=== PATIENT | female | born 1960 | race African-American/Black ===

== ENCOUNTER 2018-09-24 11:52 | Emergency (ER) | payer SELFPAY ==
[~2018-09-24] VITALS: Ht 160 cm; Wt 76.7 kg
--- OUTSIDE RECORDS SUMMARY | 2018-09-24 11:59 | XMS REPORT ---
Author Author DEVAUGHN HDEZ [facility] MAIN Address [address] [place] [address] Care Team Providers Care Police And Fire Dispatcher Name Role Phone HDEZ, DEVAUGHN Unavailable PROBLEMS Type Condition ICD9-CM Code FSG99-MB Code Onset Dates Condition Status SNOMED Code Problem Sinusitis acute 461.9 May, 0 09603437 Problem Unspecified arthropathy, lower leg [id number] 0 780465051 Problem Unspecified asthma(493.90) J45.909 0 33822800 Problem Sinusitis acute J01.90 May, 0 66079462 Problem Cigarette nicotine dependence, uncomplicated F17.210 Nov, 0 037403474 Problem Cigarette nicotine dependence, uncomplicated 305.1 Nov, 0 263117554 Problem Back pain M54.9 Oct, 0 178615338 Problem Well woman exam with routine gynecological exam Z01.419 Nov, 0 [id number] Problem Tobacco use Z72.0 Nov, 0 226686342 Problem Esophageal reflux 530.81 0 629824061 Problem Acute bronchitis J20.9 May, 0 45506958 Problem Acute bronchitis 466.0 May, 0 26762116 Problem Esophageal reflux K21.9 0 963156799 Problem Well woman exam with routine gynecological exam V72.31 Nov, 0 [id number] Problem Tobacco use 305.1 Nov, 0 254377490 Problem Back pain 724.5 Oct, 0 136121374 Problem Unspecified arthropathy, lower leg 716.96 0 [id number] ALLERGIES Substance Reaction Event Type Date Status PredniSONE delirium Drug Allergy May, Active sulfa drugs Unknown Non Drug Allergy May, Active ENCOUNTERS Encounter Location Date Diagnosis [facility] MA[facility] [address] [place] [address] May, [facility] [address] [facility] [id number] [address] Mar, [facility] [address] [facility] [id number] [address] Mar, [facility] [address] [facility] [id number] [address] Feb, [facility] [address] [facility] [id number] [address] Feb, [facility] [address] [facility] [id number] [address] Dec, [facility] [address] [facility] [id number] [address] Dec, [facility] [address] [facility] [id number] [place] [address] Nov, IMMUNIZATIONS No Known Immunizations SOCIAL HISTORY Never Assessed REASON FOR VISIT medical history update PLAN OF CARE VITAL SIGNS MEDICATIONS Medication Instructions Dosage Frequency Start Date End Date Duration Status Tizanidine HCl 4 MG Orally every 8 hours 1 tablet as needed 8h Active Loratadine 10 MG Orally Once a day 1 tablet 24h 30 day(s) Active Ranitidine HCl 75 MG Orally Twice a day 1 tablet 12h Active Albuterol Sulfate HFA 108 (90 Base) MCG/ACT Inhalation every 6 hrs 2 puffs as needed 6h Active Tramadol HCl 50 MG Orally every 8 hours as needed for pain 1 tab Active Citalopram Hydrobromide 20 MG Orally Once a day 1 tablet 24h 30 day(s) Active Flonase 50 MCG/ACT Nasally Once a day 2 spray in each nostril 24h 30 day(s) Active RESULTS No Results PROCEDURES No Known procedures INSTRUCTIONS MEDICATIONS ADMINISTERED No Known Medications MEDICAL (GENERAL) HISTORY Type Description Date Medical History asthma Medical History esophageal reflux Medical History unspecified arthropathy, lower leg Medical History back pain Medical History sinusitis acute Medical History acute bronchitis Medical History tobacco use Medical History cigarette dependence
--- OUTSIDE RECORDS SUMMARY | 2018-09-24 11:59 | XMS REPORT | Continuity of Care Document ---
Author Organization Unknown Address Unknown Allergies There is no data. Medications There is no data. Problems There is no data. Procedures There is no data. Results There is no data. Encounters ACCT No. Visit Date/Time Discharge Status Pt. Type Provider Facility Loc./Unit Complaint [id number] 06/15/2018 11:00:00 06/15/2018 23:59:59 [facility]
[2018-09-24 12:22] LABS: BILIRUBIN,URINE NEGATIVE (NEGATIVE); CLARITY,URINE CLEAR; COLOR,URINE YELLOW; GLUCOSE, URINE (UA) NEGATIVE (NEGATIVE); KETONES,URINE NEGATIVE (NEGATIVE); NITRITE,URINE NEGATIVE (NEGATIVE); PH,URINE 6 (5-9); PROTEIN,URINE NEGATIVE (NEGATIVE)
[2018-09-24 12:23] LABS: BACTERIA,URINE NEGATIVE /HPF; LEUKOCYTE ESTERASE ,URINE NEGATIVE (NEGATIVE); UROBILINOGEN,URINE NORMAL (NORMAL)
[2018-09-24] MEDS ORDERED: DICL50TA6 PO (12:34)
--- NOTE | 2018-09-24 12:34 | ED GU-Female ---
General Chief Complaint: - Urinary Stated Complaint: BACK PAIN Nursing Triage Note: c/o bilateral flank pain x 1 week with urinary urgency and frequency Nursing Sepsis Screen: No Definite Risk Source: patient Exam Limitations: no limitations History of Present Illness Date Seen by Provider: Sep 24, 2018 Time Seen by Provider: 12:30 Initial Comments Patient complains of lower back pain for the past week. She reports increased urinary frequency. She is concerned she may have urinary tract infection. There is no trauma or heavy lifting. Pain is worse with movement. Allergies and Home Medications Home Medications Diclofenac Sodium 50 Mg Tablet.dr, 50 MG PO BID Prescribed by: DANE QUINN on 09/24/18 1234 Patient Home Medication List Home Medication List Reviewed: Yes Review of Systems Review of Systems Constitutional: no symptoms reported Respiratory: no symptoms reported Cardiovascular: no symptoms reported Musculoskeletal: back pain Skin: no symptoms reported; No rash Psychiatric/Neurological: No Symptoms Reported All Other Systemes Reviewed Negative Unless Noted: Yes Past Elkponu-Fzwcrp-Hepefk Hx Patient Social History Alcohol Use: Denies Use Recreational Drug Use: No Smoking Status: Current Everyday Smoker Type Used: Cigarettes 2nd Hand Smoke Exposure: No Recent Foreign Travel: No Contact w/Someone Who Travel: No Recent Infectious Disease Expo: No Physical Abuse: No Sexual Abuse: No Mistreated: No Past Medical History Surgeries: Yes (breast biopsy) Gallbladder, Hysterectomy Respiratory: No Cardiac: No Neurological: No Genitourinary: No Gastrointestinal: Yes Gastroesophageal Reflux Musculoskeletal: Yes Arthritis Endocrine: No HEENT: No Cancer: No Psychosocial: Yes Anxiety Integumentary: No Blood Disorders: No Physical Exam Vital Signs Vital Signs - First Documented 09/24/18 09/24/18 12:03 12:37 Temp 98.2 Pulse 99 Resp 18 B/P (MAP) 128/68 (88) Pulse Ox 97 O2 Delivery Room Air Capillary Refill : Less Than 3 Seconds Height, Weight, BMI Height: 5'3.00" Weight: 169lbs. oz. 76.551027gs; BMI Method:Stated General Appearance: WD/WN, no apparent distress Neck: supple Cardiovascular: regular rate, rhythm, no edema Respiratory: lungs clear Gastrointestinal: soft Back: normal inspection, muscle spasm (tender over SI joints bilaterally) Extremities: normal inspection Neurologic/Psychiatric: alert, normal mood/affect Skin: normal color, warm/dry Progress/Results/Core Measures Suspected Sepsis Recent Fever Within 48 Hours: No Infection Criteria Present: None New/Unexplained Altered Menta: No Sepsis Screen: No Definite Risk SIRS Temperature:98.2 Pulse: 99 Respiratory Rate: 18 Blood Pressure 128 /68 Mean: 88 Results/Orders Lab Results Laboratory Tests Test 09/24/18 12:10 Range/Units Urine Color YELLOW Urine Clarity CLEAR Urine pH 6 5-9 Urine Specific [place] 1.010 L 1.016-1.022 Urine Protein NEGATIVE NEGATIVE Urine Glucose (UA) NEGATIVE NEGATIVE Urine Ketones NEGATIVE NEGATIVE Urine Nitrite NEGATIVE NEGATIVE Urine Bilirubin NEGATIVE NEGATIVE Urine Urobilinogen NORMAL NORMAL MG/DL Urine Leukocyte Esterase NEGATIVE NEGATIVE Urine RBC (Auto) NEGATIVE NEGATIVE Urine RBC NONE /HPF Urine WBC NONE /HPF Urine Squamous Epithelial Cells 10-25 H /HPF Urine Crystals NONE /LPF Urine Bacteria NEGATIVE /HPF Urine Casts NONE /LPF Urine Mucus NEGATIVE /LPF Urine Culture Indicated NO My Orders Orders - DANE QUINN MD Urinalysis (09/24/18 11:58) Vital Signs/I&O 09/24/18 09/24/18 12:03 12:37 Temp 98.2 98.2 Pulse 99 99 Resp 18 18 B/P (MAP) 128/68 (88) 128/68 (88) Pulse Ox 97 O2 Delivery Room Air Capillary Refill : Less Than 3 Seconds Blood Pressure Mean: 88 Departure Impression Primary Impression: Back pain Disposition: 01 HOME, SELF-CARE Condition: Stable Transfer Time Spoke to Accepting Phy: 12:32 Transfer Progress Notes Heating pad and gentle massage to the lower back. Departure-Patient Inst. Decision time for Depature: 12:32 Referrals: NO,LOCAL PHYSICIAN (PCP) Primary Care Physician Patient Instructions: Low Back Pain (DC) Add. Discharge Instructions: Heating pad and gentle massage to the lower back. All discharge instructions reviewed with patient and/or family. Voiced understanding. Scripts Diclofenac Sodium (Diclofenac Sodium) 50 Mg Tablet. 50 MG PO BID, #10 TAB Prov: DANE QUINN MD 09/24/18 DANE QUINN MD Sep 24, 2018 12:34
[2018-09-24 12:37] VITALS: BP 128/68
== END 2018-09-24 12:39 | disposition home or self-care (01) ==
LOC: ER FS 11:55
DX: M54.5 Low back pain (principal); K21.9 Gastro-esophageal reflux disease without esophagitis; F41.9 Anxiety disorder, unspecified; F17.210 Nicotine dependence, cigarettes, uncomplicated; Z90.710 Acquired absence of both cervix and uterus
CPT/HCPCS: 81000; 99282

== ENCOUNTER 2019-04-05 20:50 | Emergency (ER) | payer OTHER ==
[~2019-04-05] VITALS: Ht 157.5 cm; Wt 72.3 kg
[~2019-04-05 20:50] MED LIST: DICL50TA6 PO
[2019-04-05] MEDS ORDERED: ASPIRIN 81 MG CHEW (CHILDREN'S ASA) PO ONE (21:15)
[2019-04-05 21:19] LABS: HEMATOCRIT 41 % (35-52); HEMOGLOBIN 13.3 G/DL (11.5-16.0); MEAN CORPUSCULAR HEMOGLOBIN 27 PG (25-34); WHITE BLOOD COUNT 7.6 10^3/uL (4.3-11.0)
[2019-04-05 21:20] LABS: BASOPHILS # (AUTO) 0.1 10^3/uL (0.0-0.1); BASOPHILS % (AUTO) 1 % (0-10); EOSINOPHILS # (AUTO) 0.2 10^3/uL (0.0-0.3); EOSINOPHILS % (AUTO) 3 % (0-10); LYMPHOCYTES % (AUTO) 40 % (12-44); MEAN CORPUSCULAR HGB CONC 33 G/DL (32-36); MEAN CORPUSCULAR VOLUME 83 FL (80-99); MEAN PLATELET VOLUME 10.1 FL (7.4-10.4); MONOCYTES # (AUTO) 0.8 X 10^3 (0.0-1.0); MONOCYTES % (AUTO) 10 % (0-12); NEUTROPHILS # (AUTO) 3.5 X 10^3 (1.8-7.8); NEUTROPHILS % (AUTO) 46 % (42-75); PLATELET COUNT 271 10^3/uL (130-400); RED CELL DISTRIBUTION WIDTH 14.1 % (10.0-14.5)
--- NOTE | 2019-04-05 21:31 | ED Chest Pain ---
General Chief Complaint: Chest Pain Stated Complaint: CHEST PAIN Nursing Triage Note: pt states chest pain starting yesterday on and off, today retrosternal chest pain all day, pressure, pt states she does have acid reflux Nursing Sepsis Screen: No Definite Risk Source: patient History of Present Illness Date Seen by Provider: Apr 05, 2019 Time Seen by Provider: 21:01 Initial Comments 58-year-old female presenting with complaints of pressure and burning in her epigastric and chest area. This is been going on throughout the day. She states that when she tries to eat it does get worse. She also has increased symptoms when she exerts herself. She has been having symptoms off and on for a while but it has been worse since yesterday. She also has been having some intermittent pains in her left breast. She does have an appointment to see Dr. Jones in the middle of April. She states that there is a history of diabetes high blood pressure and heart disease in her family but that she personally on a has a history of asthma and smoking. She has had her gallbladder and that hasn't seemed to take care of her reflux so she doesn't take medicine for that anymore. Some of her symptoms are similar to reflux she is to have but she states they also seem different. Allergies and Home Medications Allergies Coded Allergies: Sulfa (Sulfonamide Antibiotics) (Verified Allergy, Unknown, 04/05/19) prednisone (Verified Allergy, Unknown, 04/05/19) Home Medications Diclofenac Sodium 50 Mg Tablet.dr, 50 MG PO BID Prescribed by: DANE QUINN on 09/24/18 1234 Ranitidine HCl 150 Mg Tablet, 150 MG PO BID Prescribed by: MELITON LUEVANO on 04/05/19 2316 Patient Home Medication List Home Medication List Reviewed: Yes Review of Systems Review of Systems Constitutional: No chills, No dizziness, No fever, No malaise EENTM: No Symptoms Reported Respiratory: Cough (chronic, intermittent but states she is a smoker); Denies Shortness of Air, Denies Stridor Cardiovascular: Chest Pain (burning pain in middle of chest, pressure in epigastric area going up to middle of chest and left breast at times); Denies Edema, Denies Irregular Heart Rate, Denies Lightheadedness, Denies Palpitations, Denies Syncope Gastrointestinal: Abdominal Pain (epigastric pressure and fullness, worse with eating); Denies Constipated, Denies Diarrhea, Denies Difficulty Swallowing, Denies Nausea, Denies Rectal Bleeding, Denies Vomiting Genitourinary: Denies Burning, Denies Frequency, Denies Pain Musculoskeletal: back pain (chronic) Skin: No rash Psychiatric/Neurological: Denies Headache, Denies Numbness, Denies Paresthesia Endocrine: No Symptoms Reported Hematologic/Lymphatic: No Symptoms Reported Past Yqnyumy-Mexxez-Vamjbj Hx Past Med/Social Hx: Reviewed Nursing Past Med/Soc Hx Patient Social History Alcohol Use: Denies Use Recreational Drug Use: No Type Used: Cigarettes 2nd Hand Smoke Exposure: No Recent Foreign Travel: No Contact w/Someone Who Travel: No Recent Infectious Disease Expo: No Recent Hopitalizations: No Physical Abuse: No Sexual Abuse: No Mistreated: No Fear: No Seasonal Allergies Seasonal Allergies: No Past Medical History Surgeries: Yes (breast biopsy) Gallbladder, Hysterectomy Respiratory: No Cardiac: No Neurological: No Genitourinary: No Gastrointestinal: Yes Gastroesophageal Reflux Musculoskeletal: Yes Arthritis Endocrine: No HEENT: No Cancer: No Psychosocial: Yes Anxiety Integumentary: No Blood Disorders: No Physical Exam Vital Signs Vital Signs - First Documented 04/05/19 21:05 Temp 36.1 Pulse 92 Resp 22 B/P (MAP) 126/75 (92) Pulse Ox 97 O2 Delivery Room Air Capillary Refill : Less Than 3 Seconds Height, Weight, BMI Height: 5'3.00" Weight: 169lbs. oz. 76.348462ou; 29.00 BMI Method:Stated General Appearance: No Apparent Distress, WD/WN HEENT: PERRL/EOMI, Normal ENT Inspection, Pharynx Normal Neck: Full Range of Motion, Normal Inspection, Non Tender, Supple; No Carotid Bruit Respiratory: Chest Non Tender, Lungs Clear, Normal Breath Sounds, No Accessory Muscle Use, No Respiratory Distress Cardiovascular: Regular Rate, Rhythm, No JVD, Normal Peripheral Pulses Gastrointestinal: Normal Bowel Sounds, No Pulsatile Mass, Soft; No Distended, No Guarding; Tenderness (mild epigastric tenderness with palpation) Rectal: Deferred Extremity: Normal Capillary Refill, Normal Inspection, No Calf Tenderness, No Pedal Edema Neurologic/Psychiatric: Alert, Oriented x3, Normal Mood/Affect Skin: Normal Color, Warm/Dry Progress/Results/Core Measures Results/Orders Lab Results Laboratory Tests Test 04/05/19 21:05 Range/Units White Blood Count 7.6 4.3-11.0 10^3/uL Red Blood Count 4.90 4.35-5.85 10^6/uL Hemoglobin 13.3 11.5-16.0 G/DL Hematocrit 41 35-52 % Mean Corpuscular Volume 83 80-99 FL Mean Corpuscular Hemoglobin 27 25-34 PG Mean Corpuscular Hemoglobin Concent 33 32-36 G/DL Red Cell Distribution Width 14.1 10.0-14.5 % Platelet Count 271 130-400 10^3/uL Mean Platelet Volume 10.1 7.4-10.4 FL Neutrophils (%) (Auto) 46 42-75 % Lymphocytes (%) (Auto) 40 12-44 % Monocytes (%) (Auto) 10 0-12 % Eosinophils (%) (Auto) 3 0-10 % Basophils (%) (Auto) 1 0-10 % Neutrophils # (Auto) 3.5 1.8-7.8 X 10^3 Lymphocytes # (Auto) 3.0 1.0-4.0 X 10^3 Monocytes # (Auto) 0.8 0.0-1.0 X 10^3 Eosinophils # (Auto) 0.2 0.0-0.3 10^3/uL Basophils # (Auto) 0.1 0.0-0.1 10^3/uL Prothrombin Time 13.2 12.2-14.7 SEC INR Comment 1.0 0.8-1.4 Activated Partial Thromboplast Time 36 H 24-35 SEC Sodium Level 137 135-145 MMOL/L Potassium Level 4.2 3.6-5.0 MMOL/L Chloride Level 100 98-107 MMOL/L Carbon Dioxide Level 22 21-32 MMOL/L Anion Gap 15 H 5-14 MMOL/L Blood Urea Nitrogen 15 7-18 MG/DL Creatinine 0.67 0.60-1.30 MG/DL Estimat Glomerular Filtration Rate > 60 BUN/Creatinine Ratio 22 Glucose Level 151 H 70-105 MG/DL Calcium Level 9.0 8.5-10.1 MG/DL Corrected Calcium 9.3 8.5-10.1 MG/DL Magnesium Level 1.9 1.6-2.4 MG/DL Total Bilirubin 0.2 0.1-1.0 MG/DL Aspartate Amino Transf (AST/SGOT) 16 5-34 U/L Alanine Aminotransferase (ALT/SGPT) 15 0-55 U/L Alkaline Phosphatase 111 40-136 U/L Troponin I < 0.30 <0.30 NG/ML Pro-B-Type Natriuretic Peptide 5.7 <75.0 PG/ML Total Protein 6.9 6.4-8.2 GM/DL Albumin 3.6 3.2-4.5 GM/DL Lipase 66 8-78 U/L My Orders Orders - MELITON LUEVANO MD Cbc With Automated Diff (04/05/19 21:05) Magnesium (04/05/19 21:05) Chest 1 View Ap/Pa Only (04/05/19 21:05) Ekg Tracing (04/05/19 21:05) Comprehensive Metabolic Panel (04/05/19 21:05) Protime With Inr (04/05/19 21:05) Partial Thromboplastin Time (04/05/19 21:05) O2 (04/05/19 21:05) Monitor-Rhythm Ecg Trace Only (04/05/19 21:05) Aspirin Chewable Tablet (Baby Aspirin Ch (04/05/19 21:15) Ed Iv/Invasive Line Start (04/05/19 21:05) Troponin I Fs (04/05/19 21:05) Probnp Fs (04/05/19 21:05) Lipase (04/05/19 21:34) Pantoprazole Injection (Protonix Injecti (04/05/19 21:39) Medications Given in ED Current Medications Medications Dose Ordered Sig/Jignesh Route Start Time Stop Time Status Last Admin Dose Admin Aspirin 324 mg ONCE ONCE PO 04/05/19 21:15 04/05/19 21:16 DC 04/05/19 21:21 324 MG Vital Signs/I&O 04/05/19 04/05/19 21:05 23:21 Temp 36.1 Pulse 92 78 Resp 22 17 B/P (MAP) 126/75 (92) 108/38 Pulse Ox 97 97 O2 Delivery Room Air Room Air Blood Pressure Mean: 92 Progress Progress Note #1: Time: 21:01 Progress Note Obtain basic labs and electrocardiogram with cxr. With her family history of cardiac disease and having vague pressure in her chest as well as pain going into her back Will evaluate from a cardiac standpoint and see if she has any elevation of her enzymes since she has had symptoms throughout the day. Give aspirin to cover from cardiac standpoint and protonix since she also has burning pain radiating into her chest. Progress Note #2: Progress Note Labs are all normal from a cardiac standpoint, especially considering she has had pain for more then 6 hours. She has no indication of acute AK. her CXR was clear as well. She had improvement of her symptoms with treatment here in the ED. Counseled on follow-up and return precautions. Advised to avoid fatty greasy foods close to bedtime. Try taking antacid medications. 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 MS interval 147 ms. QT interval 348 ms and QTc interval 429 ms. There is artifact on the tracing. There is no prior tracing available for comparison. There is no acute ST elevation. Diagnostic Imaging Diagonstic Imaging: Xray Plain Films/CT/US/NM/MRI: chest Comments NAME: SHILA RIVERA [facility] REC#: [id number] PT STATUS: REG ER : 1960 PHYSICIAN: MELITON LUEVANO MD ADMIT DATE: 04/05/19/ER FS Signed Date of Exam:04/05/19 CHEST 1 VIEW AP/PA ONLY CHEST 1 VIEW AP/PA ONLY Indication: Chest pain. Comparison: None available. Findings: No focal airspace disease in the visualized lungs. Please note that the posterior lower lobes are poorly evaluated by portable radiography. No pleural effusion or pneumothorax. Normal cardiomediastinal silhouette. Impression: 1. No acute cardiopulmonary process by portable radiography. Dictated by: Dictated on workstation # [id number] Dict: 04/05/192134 Trans: 04/05/192135 [facility] [id number] Interpreted by: EMMA CRUZ MD Electronically signed by: EMMA CRUZ MD 04/05/192135 Departure Impression Primary Impression: Epigastric abdominal pain Additional Impressions: GERD with esophagitis Chest pain due to GERD Disposition: 01 HOME, SELF-CARE Condition: Stable Departure-Patient Inst. Decision time for Depature: 23:14 Referrals: NO,LOCAL PHYSICIAN (PCP) Primary Care Physician KAYLYNN JONES MD Patient Instructions: Acid Reflux (Gastroesophageal Reflux Disease), Adult (DC), Chest Pain That Is Not Caused by the Heart (DC), Ulcer and Gastritis Diet Add. Discharge Instructions: Your tests tonight had looked ok from a heart stand point. You should keep your appointment with Dr. Jones in April and he may want you to have risk stratification testing with Cardiology or have a scope to look at the lining of your stomach and esophagus. Take the medicine for your stomach and to help treat for heart burn. Avoid fatty or greasy foods within a few hours of going to bed If you have worsening symptoms or new problems get rechecked or see Dr. Jones sooner. All discharge instructions reviewed with patient and/or family. Voiced understanding. Scripts Ranitidine HCl (Acid Dairy Equipment Mechanic (RANITIDINE)) 150 Mg Tablet 150 MG PO BID for reflux for 30 Days, #60 TAB 0 Refills Prov: MELITON LUEVANO MD 04/05/19 Work/School Note: Work Release Form Date Seen in the Emergency Department: Apr 05, 2019 Return to Work: Apr 07, 2019 Restrictions: No Restrictions MELITON LUEVANO MD Apr 05, 2019 21:31
[2019-04-05 21:32] LABS: PROTHROMBIN TIME PATIENT 13.2 SEC (12.2-14.7)
--- NOTE | 2019-04-05 21:37 | Diagnostic Imaging Report ---
CHEST 1 VIEW AP/PA ONLY Indication: Chest pain. Comparison: None available. Findings: No focal airspace disease in the visualized lungs. Please note that the posterior lower lobes are poorly evaluated by portable radiography. No pleural effusion or pneumothorax. Normal cardiomediastinal silhouette. Impression: 1. No acute cardiopulmonary process by portable radiography. Dictated by: Dictated on workstation # [id number]
[2019-04-05] MEDS ORDERED: PANTOPRAZOLE 40 MG (PROTONIX) VIAL IV STA (21:39)
[2019-04-05 21:59] LABS: ALANINE AMINOTRANSFERASE 15 U/L (0-55); ALBUMIN 3.6 GM/DL (3.2-4.5); ALKALINE PHOSPHATASE 111 U/L (40-136); BILIRUBIN,TOTAL 0.2 MG/DL (0.1-1.0); BUN/CREATININE RATIO 22; CARBON DIOXIDE 22 MMOL/L (21-32); CHLORIDE 100 MMOL/L (98-107); CREATININE SERUM 0.67 MG/DL (0.60-1.30); GFR ESTIMATED > 60; GLUCOSE 151 MG/DL (70-105); MAGNESIUM 1.9 MG/DL (1.6-2.4); POTASSIUM 4.2 MMOL/L (3.6-5.0); SODIUM 137 MMOL/L (135-145); TOTAL PROTEIN 6.9 GM/DL (6.4-8.2)
[2019-04-05] MEDS ORDERED: RANI150T90 PO (23:16)
[2019-04-05 23:21] VITALS: BP 108/38
== END 2019-04-05 23:21 | disposition home or self-care (01) ==
LOC: EDUNIT# 20:50 → ER FS 20:51
DX: R10.13 Epigastric pain (principal); K21.9 Gastro-esophageal reflux disease without esophagitis; F41.9 Anxiety disorder, unspecified; J45.909 Unspecified asthma, uncomplicated; F17.210 Nicotine dependence, cigarettes, uncomplicated; Z88.2 Allergy status to sulfonamides; Z88.8 Allergy status to other drugs, medicaments and biological substances; Z90.710 Acquired absence of both cervix and uterus
CPT/HCPCS: 36415; 71045; 80053; 83690; 83735; 83880; 84484; 85025; 85610; 85730; 93005

== ENCOUNTER 2019-10-26 13:37 | Emergency (ER) | payer SELFPAY ==
[~2019-10-26] VITALS: Ht 157 cm; Wt 84.0 kg
[~2019-10-26 13:37] MED LIST changes: +RANI150T90 PO
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
--- OUTSIDE RECORDS SUMMARY | 2019-10-26 14:49 | XMS REPORT ---
Author Author Keyla Espinoza Organization [facility] Address [address] [place] [address] Care Team Providers Care Ux Designer Name Role Phone DEVAUGHN Espinoza Unavailable PROBLEMS Type Condition ICD9-CM Code [id number] Code Onset Dates Condition S tatus SNOMED Code Problem Unspecified arthropathy, lower leg [id number] Active 059813061 Problem Cigarette nicotine dependence, uncomplicated F1 7.210 Nov, Active 413749301 Problem Back pain M54.9 Oct, Active 8504832 05 Problem Well woman exam with routine gynecological exam Z01.419 Nov, Active 182622184064513 Problem Tobacco use Z72.0 Nov, Active 21085 3000 Problem Primary osteoarthritis of left knee M17.12 Active 791067818851290 Problem Esophageal reflux K21.9 Active 24 1030677 Problem Asthma, intermittent with acute exacerbation J45.2 1 Active 184092257 Problem Unspecified asthma(493.90) J45.909 Act jes 45040221 Problem GERD without esophagitis K21.9 Activ e 515918835 Problem Spondylolysis, lumbar region M43.06 A ctive 187631948 Problem Generalized anxiety disorder F41.1 A ctive 21753176 Problem Panic disorder [episodic paroxysmal anxiety] F41.0 Active 676500427 ALLERGIES No Information ENCOUNTERS Encounter Location Date Diagnosis [address] [id number] [address] Aug, Primary osteoarthritis of le ft knee M17.[address] [id number], [place] [address] May, Bronchitis J40 ; Asthma, int ermittent with acute exacerbation J45.21 and Tobacco abuse Z72.[address] [id number], [place] [address] May, Primary osteoarthritis of le ft knee M17.12 [facility] [address] [id number] [place] [address] May, Acute nasopharyngitis J00 [facility] [address] [id number] [place] [address] Apr, Acute rhinosinusitis J01.90 ; Upper respiratory tract infection, unspecified type J06.9 ; Sore throat J02.9 ; Headache R51 and Chills R68.[address] [id number] [place] [address] Apr, [address] [id number], [place] [address] Feb, Primary osteoarthritis of le ft knee M17.[address] [id number], [place] [address] Nov, Primary osteoarthritis of le ft knee M17.[address] [id number] [place] [address] Oct, Primary osteoarthritis of le ft knee M17.12 ; GERD without esophagitis K21.9 ; Generalized anxiety disorder F41.1 ; Cigarette nicotine dependence, uncomplicated F17.210 ; Screening mammogram, encounter for Z12.31 and Lipid screening Z13.220 [place] [address] [facility] [id number] [address] [place] [address] Oct, [place] [address] [facility] [id number] [address] [place] [address] Sep, Primary osteoarthritis of le ft knee M17.[address] [id number], [place] [address] Aug, Primary osteoarthritis of le ft knee M17.[address] [id number] [place] [address] July, Primary osteoarthritis of le ft knee M17.12 [place] [address] [id number] [address] [place] [address] Jun, Generalized anxiety disorder F41.[address] [id number] [place] [address] Jun, Primary osteoarthritis of le ft knee M17.[address] [id number] [place] [address] Jun, [address] [id number], [place] [address] May, Primary osteoarthritis of le ft knee M17.12 ; Achilles tendinitis, left leg M76.62 ; Other specified bacterial agents as the cause of diseases classified elsewhere B96.89 ; Acute vaginitis N76.0 ; Spondylolysis, lumbar region M43.06 ; GERD without esophagitis K21.9 ; Panic disorder [episodic paroxysmal anxiety] F41.0 and Generalized anxiety disorder F41.[address] [id number] [place] [address] May, [facility] [address] [id number] [address] [place] [address] Mar, [facility] [address] [id number] [address] [place] [address] Mar, [facility] [address] [id number] [address] [place] [address] Feb, [facility] [address] [id number] [address] [place] [address] Feb, [facility] [address] [id number] [address] [place] [address] Dec, [facility] [address] [id number] [address] [place] [address] Dec, [facility] [address] [facility] [id number] [address] [place] [address] Nov, IMMUNIZATIONS No Known Immunizations SOCIAL HISTORY Never Assessed REASON FOR VISIT refills PLAN OF CARE VITAL SIGNS MEDICATIONS Medication Instructions Dosage Frequency Start Date End Date Duration S victor hugo Citalopram Hydrobromide 20 MG Orally Once a day 1 tablet 24h 30 days Active Ranitidine HCl 75 MG Orally Twice a day 1 tablet 12h 30 days Active RESULTS No Results PROCEDURES No Known [...]
--- OUTSIDE RECORDS SUMMARY | 2019-10-26 14:49 | XMS REPORT | Continuity of Care Document ---
Author Organization Unknown Address Unknown Phone Unavailable Allergies Active Description Code Type Severity Reaction Onset Reported/Identified Relationship to Patient Clinical Status Yes prednisone [id number] Drug Allerg y Unknown N/A 04/05/2019 Yes Sulfa (Sulfonamide Antibiotics) [id number] 0491 Drug Allergy Unknown N/A 020 Medications There is no data. Problems Date Dx Coded Attending Type Code Diagnosis Diagnosed By 09/24/2018 DANE QUINN MD Ot F17.210 NICOTINE DEPENDENCE, CIGARETTES, UNCOMPL 09/24/2018 DANE QUINN MD Ot F41. 9 ANXIETY DISORDER, UNSPECIFIED 09/24/2018 DANE QUINN MD Ot K21. 9 GASTRO-ESOPHAGEAL REFLUX DISEASE WITHOUT 09/24/2018 DANE QUINN MD Ot M54. 5 LOW BACK PAIN 09/24/2018 DANE QUINN MD Ot Z90.710 ACQUIRED ABSENCE OF BOTH CERVIX AND UTER 09/29/2018 DANE QUINN MD, Ot F17.210 NICOTINE DEPENDENCE, CIGARETTES, UNCOMPL 09/29/2018 DANE QUINN MD Ot F41. 9 ANXIETY DISORDER, UNSPECIFIED 09/29/2018 DANE QUINN MD Ot K21. 9 GASTRO-ESOPHAGEAL REFLUX DISEASE WITHOUT 09/29/2018 DANE QUINN MD Ot M54. 5 LOW BACK PAIN 09/29/2018 DANE QUINN MD Ot Z90.710 ACQUIRED ABSENCE OF BOTH CERVIX AND UTER 04/05/2019 MELITON LUEVANO MD Ot F17.2 10 NICOTINE DEPENDENCE, CIGARETTES, UNCOMPL 04/05/2019 MELITON LUEVANO MD, Ot F41.9 ANXIETY DISORDER, UNSPECIFIED 04/05/2019 MELITON LUEVANO MD Ot J45.9 09 UNSPECIFIED ASTHMA, UNCOMPLICATED 04/05/2019 MELITON LUEVANO MD, Ot K21.9 GASTRO-ESOPHAGEAL REFLUX DISEASE WITHOUT 04/05/2019 MELITON LUEVANO MD Ot R07.9 CHEST PAIN, UNSPECIFIED 04/05/2019 MELITON LUEVANO MD, Ot R10.1 3 EPIGASTRIC PAIN 04/05/2019 MELITON LUEVANO MD, Ot Z88.2 ALLERGY STATUS TO SULFONAMIDES STATUS 04/05/2019 MELITON LUEVANO MD, Ot Z88.8 ALLERGY STATUS TO OTH DRUG/MEDS/BIOL SUB 04/05/2019 MELITON LUEVANO MD, Ot Z90.7 10 ACQUIRED ABSENCE OF BOTH CERVIX AND UTER Procedures There is no data. Results Test Result Range Complete urinalysis with reflex to cultu re - 09/24/18 12:10 Urine color determination YELLOW NRG Urine clarity determination CLEAR NR G Urine pH measurement by test strip 6 5-9 Specific gravity of urine by test strip 1.010 1.016-1.022 Urine protein assay by test strip, semi-quantitative NEGATIVE NEGATIVE Urine glucose detection by automated test strip NE GATIVE NEGATIVE Erythrocytes detection in urine sediment by light micr oscopy NEGATIVE NEGATIVE Urine ketones detection by automated test strip NE GATIVE NEGATIVE Urine nitrite detection by test strip NEGATIVE NEGATIVE Urine total bilirubin detection by test strip NEGA TIVE NEGATIVE Urine urobilinogen measurement by automated test strip (mass/volume) NORMAL NORMAL Urine leukocyte esterase detection by dipstick NEG ATIVE NEGATIVE Automated urine sediment erythrocyte cou nt by microscopy (number/high power field) NONE NRG Automated urine sediment leukocyte count by microscopy (number/high power field) NONE NRG Bacteria detection in urine sediment by light microsco py NEGATIVE NRG Squamous epithelial cells detection in u rine sediment by light microscopy 10-25 NRG Crystals detection in urine sediment by light microsco py NONE NRG Casts detection in urine sediment by light microscopy NONE NRG Mucus detection in urine sediment by light microscopy NEGATIVE NRG Complete urinalysis with reflex to culture NO NRG Complete blood count (CBC) with automate d white blood cell (WBC) differential - 04/05/19 21:05 Blood leukocytes automated count (number/volume) 7.6 10*3/uL 4.3-11.0 Blood erythrocytes automated count (number/volume) 4.90 10*6/uL 4.35-5.85 Venous blood hemoglobin measurement (mass/volume) 13.3 g/dL 11.5-16.0 Blood hematocrit (volume fraction) 41 % 35-52 Automated erythrocyte mean corpuscular volume 83 [ foz_us] 80-99 Automated erythrocyte mean corpuscular h emoglobin (mass per erythrocyte) 27 pg 25-34 Automated erythrocyte mean corpuscular h emoglobin concentration measurement (mass/volume) 33 g/dL 32-36 Automated erythrocyte distribution width ratio 14. 1 % 10.0- 14.5 Automated blood platelet count (count/volume) 271 10*3/uL 130-400 Automated blood platelet mean volume measurement 10.1 [foz_us] 7.4-10.4 Automated blood neutrophils/100 leukocytes 46 % 42-75 Automated blood lymphocytes/100 leukocytes 40 % 12-44 Blood monocytes/100 leukocytes 10 % 0-12 Automated blood eosinophils/100 leukocytes 3 % 0-10 Automated blood basophils/100 leukocytes 1 % 0-10 Blood neutrophils automated count (number/volume) 3.5 10*3 1.8-7.8 Blood lymphocytes automated count (number/volume) 3.0 10*3 1.0-4.0 Blood monocytes automated count (number/volume) 0. 8 10*3 0.0-1.0 Automated eosinophil count 0.2 10*3/uL 0 .0-0.3 Automated blood basophil count (count/volume) 0.1 10*3/uL 0.0-0.1 PT panel in platelet poor plasma by coag ulation assay - 04/05/19 21:05 Prothrombin time (PT) in platelet poor plasma by coagu lation assay 13.2 s 12.2-14.7 INR in platelet poor plasma or blood by coagulation as say 1.0 0.8-1.4 Activated partial thromboplastin time (a PTT) in platelet poor plasma bycoagulation assay - 04/05/19 21:05 Activated partial thromboplastin time (a PTT) in platelet poor plasma bycoagulation assay 36 s 24-35 Lipase - 04/05/19 21:05 Lipase 66 U/L 8-78 TROPONIN I FS - 04/05/19 21:05 TROPONIN I FS < 0.30 <0.30 PROBNP FS - 04/05/19 21:05 PROBNP FS 5.7 pg/mL <75.0 Comprehensive metabolic panel - 04/05/19 21:05 Serum or plasma sodium measurement (moles/volume) 137 mmol/L 135-145 Serum or plasma potassium measurement (moles/volume) 4.2 mmol/L 3.6-5.0 Serum or plasma chloride measurement (moles/volume) 100 mmol/L 98-107 Carbon dioxide 22 mmol/L 21-32 Serum or plasma anion gap determination (moles/volume) 15 mmol/L 5-14 Serum or plasma urea nitrogen measurement (mass/volume ) 15 mg/dL 7-18 Serum or plasma creatinine measurement (mass/volume) 0.67 mg/dL 0.60-1.30 Serum or plasma urea nitrogen/creatinine mass ratio 22 NRG Serum or plasma creatinine measurement w ith calculation of estimated glomerular filtration rate > NRG Serum or plasma glucose measurement (mass/volume) 151 mg/dL 70-105 Serum or plasma calcium measurement (mass/volume) 9.0 mg/dL 8.5-10.1 Serum or plasma total bilirubin measurement (mass/volu me) 0.2 mg/dL 0.1-1.0 Serum or plasma alkaline phosphatase jenn surement (enzymatic activity/volume) 111 U/L 40-136 Serum or plasma aspartate aminotransfera se measurement (enzymatic activity/volume) 16 U/L 5-34 Serum or plasma alanine aminotransferase measurement (enzymatic activity/volume) 15 U/L 0-55 Serum or plasma protein measurement (mass/volume) 6.9 g/dL 6.4-8.2 Serum or plasma albumin measurement (mass/volume) 3.6 g/dL 3.2-4.5 CALCIUM CORRECTED 9.3 mg/dL 8.5-10.1 Magnesium - 04/05/19 21:05 Magnesium 1.9 mg/dL 1.6-2.4 Encounters ACCT No. Visit Date/Time Discharge Status Pt. Type Provider Facility Loc./Unit Complaint [id number] 05/25/2019 16:00:00 05/25/2019 23:59: 59 CLS Outpatient SELF, KAYLYNN Lynch [facility] [id number] 04/05/2019 20:51:00 020 23:21:00 DIS Emergency CHLOÉ MCKINNEY, MELITON [place] [facility] ER FS CHEST PAIN [id number] 09/24/2018 11:55:00 019 12:39:00 DIS Emergency KAI MCKINNEY, DANE [place] [facility] ER FS BACK PAIN
--- OUTSIDE RECORDS SUMMARY | 2019-10-26 14:49 | XMS REPORT ---
Author Author Keyla Espinoza Organization [facility] Address [address] [place] [address] Care Team Providers Care Case Finishing Machine Adjuster Name Role Phone DEVAUGHN Espinoza Unavailable PROBLEMS Type Condition ICD9-CM Code FRD42-EV Code Onset Dates Condition S tatus SNOMED Code Problem Unspecified arthropathy, lower leg AGE1946 Active 674427456 Problem Cigarette nicotine dependence, uncomplicated F1 7.210 Nov, Active 608365878 Problem Back pain M54.9 Oct, Active 3484237 05 Problem Well woman exam with routine gynecological exam Z01.419 Nov, Active 168924704700158 Problem Tobacco use Z72.0 Nov, Active 66089 3000 Problem Primary osteoarthritis of left knee M17.12 Active 051962741898010 Problem Esophageal reflux K21.9 Active 24 2146056 Problem Asthma, intermittent with acute exacerbation J45.2 1 Active 663521856 Problem Unspecified asthma(493.90) J45.909 Act jes 30900236 Problem GERD without esophagitis K21.9 Activ e 949055168 Problem Spondylolysis, lumbar region M43.06 A ctive 827654925 Problem Generalized anxiety disorder F41.1 A ctive 26433171 Problem Panic disorder [episodic paroxysmal anxiety] F41.0 Active 251425747 ALLERGIES No Information ENCOUNTERS Encounter Location Date Diagnosis [address] [id number] [address] May, Bronchitis J40 ; Asthma, int ermittent with acute exacerbation J45.21 and Tobacco abuse Z72.[address] [id number], [place] [address] 09 May, 2019 Primary osteoarthritis of le ft knee M17.12 [facility] [address] [id number] [address] May, Acute nasopharyngitis J00 [facility] [address] [id number] [address] Apr, Acute rhinosinusitis J01.90 ; Upper respiratory tract infection, unspecified type J06.9 ; Sore throat J02.9 ; Headache R51 and Chills R68.[address] [id number] [place] [address] Apr, [address] [id number], [place] [address] Feb, Primary osteoarthritis of le ft knee M17.[address] [id number] [place] [address] Nov, Primary osteoarthritis of le ft knee M17.[address] [id number], [place] [address] Oct, Primary osteoarthritis of le ft knee M17.12 ; GERD without esophagitis K21.9 ; Generalized anxiety disorder F41.1 ; Cigarette nicotine dependence, uncomplicated F17.210 ; Screening mammogram, encounter for Z12.31 and Lipid screening Z13.220 [facility] [address] [facility] [id number] [address] [place] [address] Oct, [facility] [address] [facility] [id number] [address] [place] [address] Sep, Primary osteoarthritis of le ft knee M17.[address] [id number], [place] [address] Aug, Primary osteoarthritis of le ft knee M17.[address] [id number], [place] [address] July, Primary osteoarthritis of le ft knee M17.12 [facility] [address] [facility] [id number] [address] [place] [address] Jun, Generalized anxiety disorder F41.[address] [id number] [place] [address] Jun, Primary osteoarthritis of le ft knee M17.[address] [id number] [place] [address] Jun, [address] [id number] [place] [address] May, Primary osteoarthritis of le ft knee M17.12 ; Achilles tendinitis, left leg M76.62 ; Other specified bacterial agents as the cause of diseases classified elsewhere B96.89 ; Acute vaginitis N76.0 ; Spondylolysis, lumbar region M43.06 ; GERD without esophagitis K21.9 ; Panic disorder [episodic paroxysmal anxiety] F41.0 and Generalized anxiety disorder F41.[address] [id number] [place] [address] May, [facility] [address] [facility] [id number] [address] [place] [address] Mar, [facility] [address] [id number] [address] [place] [address] Mar, [facility] [address] [id number] [address] [place] [address] Feb, [facility] [address] [id number] [address] [place] [address] Feb, [facility] [address] [id number] [address] [place] [address] Dec, [facility] [address] [id number] [address] [place] [address] Dec, [facility] [address] [id number] [address] [place] [address] Nov, IMMUNIZATIONS No Known Immunizations SOCIAL HISTORY Never Assessed REASON FOR VISIT Medication refill PLAN OF CARE VITAL SIGNS MEDICATIONS No Known Medications RESULTS No Results PROCEDURES No Known procedures [...]
--- NOTE | 2019-10-26 15:09 | Diagnostic Imaging Report ---
INDICATION: Mid back pain. TIME OF EXAM: 3:02 p.m. COMPARISON: Prior chest from 04/05/2019. FINDINGS: The heart size is normal. The pulmonary vascularity is unremarkable. The lungs are clear. No infiltrate, effusion or pneumothorax is detected. IMPRESSION: No acute cardiopulmonary process is detected. Dictated by: Dictated on workstation # [id number]
[2019-10-26 16:50] LABS: BILIRUBIN,URINE NEGATIVE (NEGATIVE); CLARITY,URINE CLEAR; COLOR,URINE YELLOW; GLUCOSE, URINE (UA) NEGATIVE (NEGATIVE); KETONES,URINE NEGATIVE (NEGATIVE); NITRITE,URINE NEGATIVE (NEGATIVE); PROTEIN,URINE NEGATIVE (NEGATIVE)
[2019-10-26 16:51] LABS: BACTERIA,URINE NEGATIVE /HPF; LEUKOCYTE ESTERASE ,URINE NEGATIVE (NEGATIVE); RBC,URINE RARE /HPF; SQUAMOUS EPITHELIAL CELL,UR 0-2 /HPF; WBC,URINE 0-2 /HPF
[2019-10-26] MEDS ORDERED: BACL10TA PO (19:23)
--- NOTE | 2019-10-26 19:23 | ED General ---
General Chief Complaint: Back Problems Stated Complaint: BACK PAIN Nursing Sepsis Screen: No Definite Risk Source of Information: Patient History of Present Illness Date Seen by Provider: Oct 26, 2019 Time Seen by Provider: 18:48 Initial Comments 59-year-old female presenting with complaints of tenderness to her thoracic area of her back. She denies any direct injury to her back or specific lifting that she is aware to cause the injury. She does sleep sitting up and has had pain in her neck and upper back in the last few days. At times she has had her neck lockup. She also has had pinpoint tenderness to the left side of her back. This area is between her shoulder blade in her spine. It then travels up her back. Occasionally the pain wraps around her side. She sometimes has improvement with putting pressure on the left side of her back and other times it feels better to lay on the right side of her chest and back. Again this is just been in the last 3-4 days. She denies any cough or congestion. She has had no fever or chills. She has no nausea or vomiting. She was concerned this might be her lungs or something with her heart or stomach so she came in to be evaluated. Allergies and Home Medications Allergies Coded Allergies: Sulfa (Sulfonamide Antibiotics) (Verified Allergy, Unknown, 04/05/19) prednisone (Verified Allergy, Unknown, 04/05/19) Home Medications Baclofen 10 Mg Tablet, 10 MG PO BID PRN for MUSCLE SPASMS Prescribed by: MELITON LUEVANO on 10/26/19 192 Diclofenac Sodium 50 Mg Tablet.dr, 50 MG PO BID Prescribed by: DANE QUINN on 09/24/18 1234 Ranitidine HCl 150 Mg Tablet, 150 MG PO BID Prescribed by: MELITON LUEVANO on 04/05/19 2316 Patient Home Medication List Home Medication List Reviewed: Yes Review of Systems Review of Systems Constitutional: No chills, No dizziness, No fever, No malaise EENTM: No ear discharge, No ear pain, No blurred vision, No hoarseness, No epistaxis, No nose congestion, No throat pain, No throat swelling Respiratory: No cough, No dyspnea on exertion, No hemoptysis, No phlegm, No short of breath, No stridor, No wheezing Cardiovascular: see HPI Gastrointestinal: No nausea, No vomiting Genitourinary: No dysuria Musculoskeletal: see HPI Skin: No rash Psychiatric/Neurological: Anxiety Hematologic/Lymphatic: Denies Blood Clots, Denies Easy Bleeding, Denies Easy Bruising Immunological/Allergic: no symptoms reported Past Wqsxdfm-Xyptvd-Kxgowh Hx Past Med/Social Hx: Reviewed Nursing Past Med/Soc Hx Patient Social History Alcohol Use: Denies Use Recreational Drug Use: No Smoking Status: Current Everyday Smoker Type Used: Cigarettes 2nd Hand Smoke Exposure: No Recent Foreign Travel: No Contact w/Someone Who Travel: No Recent Infectious Disease Expo: No Recent Hopitalizations: No Physical Abuse: No Sexual Abuse: No Mistreated: No Fear: No Seasonal Allergies Seasonal Allergies: No Past Medical History Surgeries: Yes (breast biopsy) Gallbladder, Hysterectomy Respiratory: No Cardiac: No Neurological: No Genitourinary: No Gastrointestinal: Yes Gastroesophageal Reflux Musculoskeletal: Yes Arthritis Endocrine: No HEENT: No Cancer: No Psychosocial: Yes Anxiety Integumentary: No Blood Disorders: No Physical Exam Vital Signs Vital Signs - First Documented 10/26/19 14:31 Temp 36.8 Pulse 86 Resp 18 B/P (MAP) 116/69 (85) Pulse Ox 95 O2 Delivery Room Air Capillary Refill : Less Than 3 Seconds Height, Weight, BMI Height: 5'3.00" Weight: 169lbs. oz. 76.560567cn; 34.00 BMI Method:Stated General Appearance: No Apparent Distress, WD/WN HEENT: PERRL/EOMI, Normal ENT Inspection, Pharynx Normal Neck: Full Range of Motion, Normal Inspection, Non Tender, Supple; No Carotid Bruit Respiratory: Lungs Clear, Normal Breath Sounds, No Accessory Muscle Use, No Respiratory Distress, Other (tender to palpation on posterior chest along left rhomboid and between scapula and thoracic spine with muscle spasms) Cardiovascular: Regular Rate, Rhythm, No Edema, No Murmur, Normal Peripheral Pulses Gastrointestinal: Normal Bowel Sounds, No Pulsatile Mass, Non Tender, Soft Back: No CVA Tenderness, No Vertebral Tenderness Extremity: Normal Capillary Refill, No Pedal Edema Neurologic/Psychiatric: Alert, Oriented x3, No Motor/Sensory Deficits, Normal 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, 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 as 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 Skin: Normal Color, Warm/Dry; No Rash Progress/Results/Core Measures Suspected Sepsis Recent Fever Within 48 Hours: No Infection Criteria Present: None New/Unexplained Altered Menta: No Sepsis Screen: No Definite Risk SIRS Temperature: Pulse: 86 Respiratory Rate: 18 Blood Pressure 116 /69 Mean: 85 Results/Orders Lab Results Laboratory Tests Test 10/26/19 16:35 Range/Units Urine Color YELLOW Urine Clarity CLEAR Urine pH 6.0 5-9 Urine Specific [place] 1.015 L 1.016-1.022 Urine Protein NEGATIVE NEGATIVE Urine Glucose (UA) NEGATIVE NEGATIVE Urine Ketones NEGATIVE NEGATIVE Urine Nitrite NEGATIVE NEGATIVE Urine Bilirubin NEGATIVE NEGATIVE Urine Urobilinogen 0.2 < = 1.0 MG/DL Urine Leukocyte Esterase NEGATIVE NEGATIVE Urine RBC (Auto) TRACE H NEGATIVE Urine RBC RARE /HPF Urine WBC 0-2 /HPF Urine Squamous Epithelial Cells 0-2 /HPF Urine Crystals NONE /LPF Urine Bacteria NEGATIVE /HPF Urine Casts NONE /LPF Urine Mucus NEGATIVE /LPF Urine Culture Indicated NO My Orders Orders - MELITON LUEVANO MD Ua Culture If Indicated (10/26/19 14:28) Chest Pa/Lat (2 View) (10/26/19 14:28) Vital Signs/I&O 10/26/19 10/26/19 14:31 19:27 Temp 36.8 Pulse 86 83 Resp 18 16 B/P (MAP) 116/69 (85) 101/74 Pulse Ox 95 97 O2 Delivery Room Air Room Air Capillary Refill : Less Than 3 Seconds Blood Pressure Mean: 85 Progress Note #1: Progress Note obtain UA and CXR Progress Note #2: Progress Note reviewed with pt that UA and CXR are clear. Reassured that exam and tests point more towards a musculoskeletal source for her symptoms. We will try a muscle relaxer on top of her tramadol she already takes for chronic pain. Encouraged to check back with a chiropractor or primary for further concerns. Counseled on follow-up and return precautions. Diagnostic Imaging Diagonstic Imaging: Xray Plain Films/CT/US/NM/MRI: chest Comments [facility], [place] NAME: SHILA RIVERA [facility] REC#: [id number] PT STATUS: REG ER : 1960 PHYSICIAN: MELITON LUEVANO MD ADMIT DATE: 10/26/19/ER FS Signed Date of Exam:10/26/19 CHEST PA/LAT (2 VIEW) INDICATION: Mid back pain. TIME OF EXAM: 3:02 p.m. COMPARISON: Prior chest from 04/05/2019. FINDINGS: The heart size is normal. The pulmonary vascularity is unremarkable. The lungs are clear. No infiltrate, effusion or pneumothorax is detected. IMPRESSION: No acute cardiopulmonary process is detected. Dictated by: Dictated on workstation # [id number] Dict: 10/26/19 1506 Trans: 10/26/19 1548 [id number] Interpreted by: TEE SHEA MD Electronically signed by: TEE SHEA MD 10/26/19 1548 Departure Impression Primary Impression: Rhomboid muscle strain Qualified Codes: S29.012A - Strain of muscle and tendon of back wall of thorax, initial encounter Additional Impression: Strain of thoracic region Qualified Codes: S29.019A - Strain of muscle and tendon of unspecified wall of thorax, initial encounter Disposition: HOME, SELF-CARE Condition: Stable Departure-Patient Inst. Decision time for Depature: 19:21 Referrals: KAYLYNN LEWIS MD (PCP/Family) Primary Care Physician Patient Instructions: Muscle Strain (DC), Upper Back Pain (DC) Add. Discharge Instructions: Try the muscle relaxer medicine to see if that helps. Consider seeing a chiropractor for your pain as well. If you have worsening symptoms or start having pain in the abdomen or associated nausea/vomiting or shortness of breath then return or seek medical care for further testing All discharge instructions reviewed with patient and/or family. Voiced un derstanding. Scripts Baclofen (Baclofen) 10 Mg Tablet 10 MG PO BID PRN for MUSCLE SPASMS for 10 Days, #20 TAB 0 Refills Prov: MELITON LUEVANO MD 10/26/19 MELITON LUEVANO MD Oct 26, 2019 19:23
[2019-10-26 19:27] VITALS: BP 101/74
== END 2019-10-26 19:28 | disposition home or self-care (01) ==
LOC: EDUNIT# 13:37 → ER FS 13:39
DX: S29.012A Strain of muscle and tendon of back wall of thorax, initial encounter (principal); K21.9 Gastro-esophageal reflux disease without esophagitis; F17.210 Nicotine dependence, cigarettes, uncomplicated; Z88.8 Allergy status to other drugs, medicaments and biological substances; Z88.2 Allergy status to sulfonamides; X58.XXXA Exposure to other specified factors, initial encounter
CPT/HCPCS: 71046; 81000

== ENCOUNTER 2020-11-21 10:06 | Emergency (ER) | payer MEDICAID, OTHER ==
[~2020-11-21] VITALS: Ht 160 cm; Wt 8.5 kg
[~2020-11-21 10:06] MED LIST changes: +BACL10TA PO
--- OUTSIDE RECORDS SUMMARY | 2020-11-21 10:11 | XMS REPORT | Clinical Summary ---
Author Author [facility] Organization [facility] Address Unknown Phone Unavailable Care Team Providers Care Enlisted Advisor Name Role Phone PCP Unavailable Source Comments [facility] (Labor and Delivery) documents do not appear in the [facility] Allergies Not on File Medications Please verify current medications with patient. Not on file Active Problems Not on file Social History Date Tobacco Use Types Packs/Day Years Used Never Assessed Sex Assigned at Date Recorded Not on file Last Filed Vital Signs Not on file Plan of Treatment Health Maintenance Due Date Last Done Comments CT Colonography 1960 Colon cancer: DNA-based 1960 stool test (Cologuard) HPV/Cotest 1960 Sigmoidoscopy 1960 gFOBT or FIT 1960 COVID-19 Vaccine (1) 1970 Cervical Cancer Screening 09/18/1979 Pap Smear 09/18/1979 Colonoscopy 2008 Colorectal Cancer 2008 Screening Mammogram 2008 Influenza Vaccine (#1) 2020 Pneumococcal Vaccine: 65+ 09/18/2023 Years (1 of 1 - PPSV23) HPV Vaccine Aged Out No longer eligible based on patient's age to complete this topic Pneumococcal Vaccine: Aged Out No longer eligib le based on patient's age to Pediatrics (0 to 5 Years) complete this topic and At-Risk Patients (6 to 64 Years) Results Not on filefrom Last 3 Months
--- NOTE | 2020-11-21 10:16 | ED General ---
General Stated Complaint: CHEST PAIN Source of Information: Patient Exam Limitations: Intoxication History of Present Illness Date Seen by Provider: Nov 21, 2020 Time Seen by Provider: 10:13 Initial Comments Patient is a 60-year-old -[place] female with history of COPD and tobaccoism who presents with productive cough with clear sputum, left-sided c hest wall pain worse with deep inspiration, left trapezius muscle pain and shoulder pain reproducible with palpation and deep breathing. Patient states onset of musculoskeletal pain was yesterday evening. It is not continuous sharp, brief in resolves between breaths. It is rated mild. There is not exertional component of chest pain patient has not taking any medications. She denies fever chills, nausea vomiting or sweats. She denies purulent sputum production. No history of CAD, PE, valvular heart disease. No leg pain or swelling. No other acute symptoms or complaints. Patient called her PCP and was instructed to come to the ED for evaluation. Covid vaccinations series completed in spring 2020. Timing/Duration: 1-2 Days Modifying Factors: improves with Other Associated Systoms: Other Allergies and Home Medications Allergies Coded Allergies: Sulfa (Sulfonamide Antibiotics) (Verified Allergy, Unknown, 04/05/19) prednisone (Verified Allergy, Unknown, 04/05/19) Patient Home Medication List Home Medication List Reviewed: Yes Baclofen (Baclofen) 10 Mg Tablet, 10 MG PO BID PRN for MUSCLE SPASMS Prescribed by: MELITON LUEVANO on 10/26/19 192 Diclofenac Sodium (Diclofenac Sodium) 50 Mg Tablet.dr, 50 MG PO BID Prescribed by: DANE QUNIN on 09/24/18 1234 Ranitidine HCl (Acid Operations Team Leader (RANITIDINE)) 150 Mg Tablet, 150 MG PO BID Prescribed by: MELITON LUEVANO on 04/05/19 2316 Review of Systems Review of Systems Constitutional: see HPI EENTM: see HPI Respiratory: see HPI Cardiovascular: see HPI Gastrointestinal: see HPI Genitourinary: see HPI Musculoskeletal: see HPI Skin: see HPI Psychiatric/Neurological: See HPI Hematologic/Lymphatic: See HPI Immunological/Allergic: see HPI All Other Systems Reviewed Negative Unless Noted: Yes Past Ffwuzjl-Zqcmbd-Cswshd Hx Patient Social History Tobacco Use?: Yes Seasonal Allergies Seasonal Allergies: No Past Medical History Surgeries: Yes (breast biopsy) Gallbladder, Hysterectomy Respiratory: No Cardiac: No Neurological: No Genitourinary: No Gastrointestinal: Yes Gastroesophageal Reflux Musculoskeletal: Yes Arthritis Endocrine: No HEENT: No Cancer: No Psychosocial: Yes Anxiety Integumentary: No Blood Disorders: No Physical Exam Vital Signs Vital Signs - First Documented 11/21/20 10:17 Temp 36.7 Pulse 93 Resp 15 B/P (MAP) 125/67 (86) Pulse Ox 95 O2 Delivery Room Air Capillary Refill : Height, Weight, BMI Height: 5'3.00" Weight: 169lbs. oz. 76.531210gf; 34.00 BMI Method:Stated General Appearance: WD/WN, Anxious Eyes: Bilateral Eye Normal Inspection, Bilateral Eye PERRL HEENT: PERRL/EOMI, Pharynx Normal, Moist Mucous Membranes Neck: Full Range of Motion, Non Tender, Supple Respiratory: Lungs Clear, Decreased Breath Sounds, Other (Left trapezius muscle pain/spasm reproducing chest wall pain. No subcutaneous emphysema or crepitus) Cardiovascular: Regular Rate, Rhythm, No Edema, No JVD Gastrointestinal: Non Tender, Soft Back: Normal Inspection Extremity: No Calf Tenderness Neurologic/Psychiatric: Alert, Oriented x3 Progress/Results/Core Measures Suspected Sepsis SIRS Temperature: Pulse: Respiratory Rate: Laboratory Tests 11/21/20 10:07: White Blood Count 7.8 Blood Pressure / Mean: Laboratory Tests 11/21/20 10:07: Creatinine 0.70, Platelet Count 286, Total Bilirubin 0.4 Results/Orders Lab Results Laboratory Tests Test 11/21/20 10:07 Range/Units White Blood Count 7.8 4.3-11.0 10^3/uL Red Blood Count 5.45 H 3.80-5.11 10^6/uL Hemoglobin 14.7 11.5-16.0 g/dL Hematocrit 45 35-52 % Mean Corpuscular Volume 83 80-99 fL Mean Corpuscular Hemoglobin 27 25-34 pg Mean Corpuscular Hemoglobin Concent 33 32-36 g/dL Red Cell Distribution Width 14.9 H 10.0-14.5 % Platelet Count 286 130-400 10^3/uL Mean Platelet Volume 10.3 9.0-12.2 fL Immature Granulocyte % (Auto) 0 % Neutrophils (%) (Auto) 57 42-75 % Lymphocytes (%) (Auto) 32 12-44 % Monocytes (%) (Auto) 9 0-12 % Eosinophils (%) (Auto) 2 0-10 % Basophils (%) (Auto) 0 0-10 % Neutrophils # (Auto) 4.5 1.8-7.8 X 10^3 Lymphocytes # (Auto) 2.5 1.0-4.0 X 10^3 Monocytes # (Auto) 0.7 0.0-1.0 X 10^3 Eosinophils # (Auto) 0.2 0.0-0.3 10^3/uL Basophils # (Auto) 0.0 0.0-0.1 10^3/uL Immature Granulocyte # (Auto) 0.0 0.0-0.1 10^3/uL D-Dimer 0.58 H 0.00-0.49 UG/ML Sodium Level 137 135-145 MMOL/L Potassium Level 4.2 3.6-5.0 MMOL/L Chloride Level 102 98-107 MMOL/L Carbon Dioxide Level 26 21-32 MMOL/L Anion Gap 9 5-14 MMOL/L Blood Urea Nitrogen 14 7-18 MG/DL Creatinine 0.70 0.60-1.30 MG/DL Estimat Glomerular Filtration Rate 103 BUN/Creatinine Ratio 20 Glucose Level 143 H 70-105 MG/DL Calcium Level 8.8 8.5-10.1 MG/DL Corrected Calcium 8.9 8.5-10.1 MG/DL Total Bilirubin 0.4 0.1-1.0 MG/DL Aspartate Amino Transf (AST/SGOT) 16 5-34 U/L Alanine Aminotransferase (ALT/SGPT) 17 0-55 U/L Alkaline Phosphatase 114 40-136 U/L Troponin I < 0.30 <0.30 NG/ML Total Protein 7.4 6.4-8.2 GM/DL Albumin 3.9 3.2-4.5 GM/DL My Orders Orders - ANA BALL DO Cbc With Automated Diff (11/21/20 10:16) Comprehensive Metabolic Panel (11/21/20 10:16) Troponin I Fs (11/21/20 10:16) Fibrin Degradation Products (11/21/20 10:16) Chest 1 View Ap/Pa Only (11/21/20 10:16) Ekg Tracing (11/21/20 10:17) Vital Signs/I&O 11/21/20 10:17 Temp 36.7 Pulse 93 Resp 15 B/P (MAP) 125/67 (86) Pulse Ox 95 O2 Delivery Room Air Capillary Refill : Departure Communication (Admissions) Chest x-ray: No acute cardiopulmonary disease per radiology report EKG: Sinus rhythm, rate 93, normal NC, QTc, QRS intervals. Low voltage in precordial leads. No acute ST-T wave changes on preliminary ED read Patient with reproducible chest wall pain without acute pneumonic infiltrate and low risk for PE. D-dimer is 0.58 less than patient's age which is considered negative given clinical context. Recommendations are supportive care with PCP follow-up. Return precautions reviewed. Impression Primary Impression: Chest wall pain Additional Impression: Chronic bronchitis with COPD (chronic obstructive pulmonary disease) Disposition: HOME, SELF-CARE Condition: Stable Departure-Patient Inst. Decision time for Depature: 11:11 Referrals: KAYLYNN LEWIS MD (PCP/Family) Primary Care Physician Patient Instructions: Chronic Bronchitis, Chest Pain, Adult ED Add. Discharge Instructions: You were evaluated in the emergency department for chest wall pain and COPD. An EKG, lab and imaging studies were performed and are nondiagnostic. The exact cause of your symptoms has not been determined but is most consistent with musculoskeletal pain secondary to chronic bronchitis. Please take Tylenol OTC, Mucinex OTC and Flexeril for musculoskeletal pain and sputum. Follow-up with your PCP in 2 to 3 days for reevaluation. Return to the ED if new or worsening symptoms Scripts Cyclobenzaprine HCl (Cyclobenzaprine HCl) 10 Mg Tablet 10 MG PO TID, #21 TAB Prov: ANA BALL DO 11/21/20 ANA BALL DO Nov 21, 2020 10:15
--- NOTE | 2020-11-21 10:30 | Diagnostic Imaging Report ---
INDICATION: Chest pain Portable chest 10:11 AM Heart size and pulmonary vascularity are normal. Lungs are clear. There are no effusions or pneumothoraces. IMPRESSION: No acute abnormalities in the chest. Dictated by: Dictated on workstation # [id number]
[2020-11-21 10:31] LABS: BASOPHILS % (AUTO) 0 % (0-10); EOSINOPHILS # (AUTO) 0.2 10^3/uL (0.0-0.3); EOSINOPHILS % (AUTO) 2 % (0-10); HEMATOCRIT 45 % (35-52); HEMOGLOBIN 14.7 g/dL (11.5-16.0); LYMPHOCYTES # (AUTO) 2.5 X 10^3 (1.0-4.0); LYMPHOCYTES % (AUTO) 32 % (12-44); MEAN CORPUSCULAR HEMOGLOBIN 27 pg (25-34); MEAN CORPUSCULAR HGB CONC 33 g/dL (32-36); MEAN CORPUSCULAR VOLUME 83 fL (80-99); MEAN PLATELET VOLUME 10.3 fL (9.0-12.2); MONOCYTES # (AUTO) 0.7 X 10^3 (0.0-1.0); MONOCYTES % (AUTO) 9 % (0-12); NEUTROPHILS # (AUTO) 4.5 X 10^3 (1.8-7.8); NEUTROPHILS % (AUTO) 57 % (42-75); PLATELET COUNT 286 10^3/uL (130-400); WHITE BLOOD COUNT 7.8 10^3/uL (4.3-11.0)
[2020-11-21 10:56] LABS: BUN/CREATININE RATIO 20; CALCIUM 8.8 MG/DL (8.5-10.1); CARBON DIOXIDE 26 MMOL/L (21-32); CHLORIDE 102 MMOL/L (98-107); GFR ESTIMATED 103; GLUCOSE 143 MG/DL (70-105); POTASSIUM 4.2 MMOL/L (3.6-5.0); SODIUM 137 MMOL/L (135-145)
[2020-11-21 10:57] LABS: ALANINE AMINOTRANSFERASE 17 U/L (0-55); ALBUMIN 3.9 GM/DL (3.2-4.5); ALKALINE PHOSPHATASE 114 U/L (40-136); BILIRUBIN,TOTAL 0.4 MG/DL (0.1-1.0); TOTAL PROTEIN 7.4 GM/DL (6.4-8.2)
[2020-11-21] MEDS ORDERED: CYCL10TA9 PO ×2 (11:14→11:25)
[2020-11-21 11:18] VITALS: BP 125/67
== END 2020-11-21 11:18 | disposition home or self-care (01) ==
LOC: EDUNIT# 10:06 → ER FS 10:08
DX: R07.89 Other chest pain (principal); J44.9 Chronic obstructive pulmonary disease, unspecified; K21.9 Gastro-esophageal reflux disease without esophagitis; Z79.899 Other long term (current) drug therapy
CPT/HCPCS: 36415; 71045; 80053; 84484; 85025; 85379; 93005

== ENCOUNTER 2022-03-20 15:46 | Emergency (ER) | payer MEDICARE, MEDICAID ==
[~2022-03-20 15:46] MED LIST changes: +CYCL10TA25 PO
[2022-03-20 16:06] LABS: BASOPHILS % (AUTO) 1 % (0-10); EOSINOPHILS # (AUTO) 0.2 10^3/uL (0.0-0.3); EOSINOPHILS % (AUTO) 3 % (0-10); HEMATOCRIT 44 % (35-52); HEMOGLOBIN 14.5 g/dL (11.5-16.0); LYMPHOCYTES # (AUTO) 3.6 10^3/uL (1.0-4.0); LYMPHOCYTES % (AUTO) 47 % (12-44); MEAN CORPUSCULAR HEMOGLOBIN 27 pg (25-34); MEAN CORPUSCULAR HGB CONC 33 g/dL (32-36); MEAN CORPUSCULAR VOLUME 81 fL (80-99); MEAN PLATELET VOLUME 10.2 fL (9.0-12.2); MONOCYTES # (AUTO) 0.8 10^3/uL (0.0-1.0); MONOCYTES % (AUTO) 10 % (0-12); NEUTROPHILS # (AUTO) 3.1 10^3/uL (1.8-7.8); NEUTROPHILS % (AUTO) 40 % (42-75); PLATELET COUNT 275 10^3/uL (130-400); WHITE BLOOD COUNT 7.7 10^3/uL (4.3-11.0)
[2022-03-20 16:24] LABS: POTASSIUM 3.8 MMOL/L (3.6-5.0)
[2022-03-20 16:25] LABS: ALBUMIN 3.9 GM/DL (3.2-4.5); BILIRUBIN,TOTAL 0.2 MG/DL (0.1-1.0); CALCIUM 9.3 MG/DL (8.5-10.1); CREATININE SERUM 0.67 MG/DL (0.60-1.30); MAGNESIUM 1.9 MG/DL (1.6-2.4); TOTAL PROTEIN 7.1 GM/DL (6.4-8.2)
--- NOTE | 2022-03-20 16:25 | Diagnostic Imaging Report ---
Indication: Chest pain Portable chest 4:16 PM Heart size and pulmonary vascularity are normal. Lungs are clear. There are no effusions or pneumothoraces. IMPRESSION: Negative chest Dictated by: Dictated on workstation # [id number]
[2022-03-20 16:35] LABS: INR 0.9 (0.8-1.4); PROTHROMBIN TIME PATIENT 12.4 SEC (12.2-14.7)
[2022-03-20] MEDS ORDERED: ANTACID SUSP 30 ML UDC (MYLANTA) PO ONE (16:45)
[2022-03-20] MEDS ORDERED: ONDANSETRON 4 MG/2 ML (SDV) Z0FRAN IVP ONE (16:45)
[2022-03-20] MEDS ORDERED: LIDOCAINE 2% VISCOUS 15 ML UDC PO ONE (16:45)
[2022-03-20] MEDS ORDERED: KETOROLAC 30 MG/ML VIAL IVP ONE (17:30)
[2022-03-20] MEDS ORDERED: ASPIRIN 81 MG CHEW (CHILDREN'S ASA) PO ONE (17:30)
--- NOTE | 2022-03-20 19:40 | ED Chest Pain ---
General Chief Complaint: Chest Pain Stated Complaint: CP Nursing Triage Note: Patient presents to the ED with c/o chest pain. Reports intermittent sharp chest pain x3 days. States current episode started 30 minutes ago. States pain has eased a little since getting to the ED. Source: patient Exam Limitations: no limitations History of Present Illness Date Seen by Provider: Mar 20, 2022 Time Seen by Provider: 15:57 Initial Comments This is 61-year-old woman presents to the emergency room with complaints of central upper chest pain intermittently over the past few days. Most recent episode started about an hour prior to arrival. Her chest is tender to palpation. She denies any alleviating or exacerbating factors. She notes she has been drinking a significant amount of soda recently which is not usual for her. She has some mild intermittent abdominal discomfort as well which she attributes to GERD. Her primary care provider is Dr. Jones. She reports her pain is about 4/10 at this time. She has no known cardiac pathology. She does smoke. Allergies and Home Medications Allergies Coded Allergies: Sulfa (Sulfonamide Antibiotics) (Verified Allergy, Unknown, 04/05/19) prednisone (Verified Allergy, Unknown, 04/05/19) Patient Home Medication List Home Medication List Reviewed: Yes Baclofen (Baclofen) 10 Mg Tablet, 10 MG PO BID PRN for MUSCLE SPASMS Prescribed by: MELITON LUEVANO on 10/26/19 1923 Cyclobenzaprine HCl (Cyclobenzaprine HCl) 10 Mg Tablet, 10 MG PO TID Prescribed by: ANA BALL on 11/21/20 1125 Diclofenac Sodium (Diclofenac Sodium) 50 Mg Tablet.dr, 50 MG PO BID Prescribed by: DANE QUINN on 09/24/18 1234 Ranitidine HCl (Acid Internet Marketing Specialist (RANITIDINE)) 150 Mg Tablet, 150 MG PO BID Prescribed by: MELITON LUEVANO on 04/05/19 2316 Review of Systems Review of Systems Constitutional: no symptoms reported EENTM: No Symptoms Reported Respiratory: No Symptoms Reported Cardiovascular: See HPI Gastrointestinal: See HPI Genitourinary: No Symptoms Reported Musculoskeletal: see HPI Skin: no symptoms reported Psychiatric/Neurological: No Symptoms Reported Endocrine: No Symptoms Reported Hematologic/Lymphatic: No Symptoms Reported Past Eyfjtta-Tfbdcl-Bpjpmw Hx Patient Social History Tobacco Use?: Yes Tobacco type used: Cigarettes Smoking Status: Current Everyday Smoker Substance use?: No Alcohol Use?: No Pt feels they are or have been: No Immunizations Up To Date First/Initial COVID19 Vaccinat: August 2020 Second COVID19 Vaccination Ferny: September 2020 Third COVID19 Vaccination Date: August 2020 Seasonal Allergies Seasonal Allergies: No Past Medical History Surgery/Hospitalization HX: COPD; Asthma;GERD; Anxiety; Arthritis; Hysterectomy; Cholecysectomy; Lumpectomy; Carpal tunnel release; Cataract removal. Surgeries: Yes (breast biopsy) Breast (Biopsy), Eye Surgery (Atarax), Gallbladder, Hysterectomy, Orthopedic (Carpal tunnel and ulnar nerve release bilaterally) Respiratory: Yes Asthma, COPD Cardiac: No Neurological: No Genitourinary: No Gastrointestinal: Yes Gastroesophageal Reflux Musculoskeletal: Yes Arthritis Endocrine: No HEENT: No Cancer: No Psychosocial: Yes Anxiety Integumentary: No Blood Disorders: No Physical Exam Vital Signs Vital Signs - First Documented 03/20/22 15:47 Temp 36.4 Pulse 94 Resp 16 B/P (MAP) 126/57 (80) Pulse Ox 96 O2 Delivery Room Air Capillary Refill : Less Than 3 Seconds Height, Weight, BMI Height: 5'3.00" Weight: 169lbs. oz. [id number]; 3.00 BMI Method:Stated General Appearance: No Apparent Distress, WD/WN HEENT: PERRL/EOMI, Normal ENT Inspection Neck: Normal Inspection; No JVD Respiratory: Lungs Clear, Normal Breath Sounds, No Accessory Muscle Use, No Respiratory Distress, Other (Anterior central chest wall tender to palpation) Cardiovascular: Regular Rate, Rhythm, No Edema, No Murmur Gastrointestinal: Normal Bowel Sounds, Non Tender, Soft; No Distended Extremity: Normal Inspection, Non Tender, No Calf Tenderness Neurologic/Psychiatric: Alert, Oriented x3, No Motor/Sensory Deficits, Normal Mood/Affect Skin: Normal Color, Warm/Dry Progress/Results/Core Measures Results/Orders Lab Results Laboratory Tests Test 03/20/22 15:59 03/20/22 18:35 Range/Units White Blood Count 7.7 4.3-11.0 10^3/uL Red Blood Count 5.39 H 3.80-5.11 10^6/uL Hemoglobin 14.5 11.5-16.0 g/dL Hematocrit 44 35-52 % Mean Corpuscular Volume 81 80-99 fL Mean Corpuscular Hemoglobin 27 25-34 pg Mean Corpuscular Hemoglobin Concent 33 32-36 g/dL Red Cell Distribution Width 14.3 10.0-14.5 % Platelet Count 275 130-400 10^3/uL Mean Platelet Volume 10.2 9.0-12.2 fL Immature Granulocyte % (Auto) 0 % Neutrophils (%) (Auto) 40 L 42-75 % Lymphocytes (%) (Auto) 47 H 12-44 % Monocytes (%) (Auto) 10 0-12 % Eosinophils (%) (Auto) 3 0-10 % Basophils (%) (Auto) 1 0-10 % Neutrophils # (Auto) 3.1 1.8-7.8 10^3/uL Lymphocytes # (Auto) 3.6 1.0-4.0 10^3/uL Monocytes # (Auto) 0.8 0.0-1.0 10^3/uL Eosinophils # (Auto) 0.2 0.0-0.3 10^3/uL Basophils # (Auto) 0.0 0.0-0.1 10^3/uL Immature Granulocyte # (Auto) 0.0 0.0-0.1 10^3/uL Prothrombin Time 12.4 12.2-14.7 SEC INR Comment 0.9 0.8-1.4 Activated Partial Thromboplast Time 32 24-35 SEC Sodium Level 141 135-145 MMOL/L Potassium Level 3.8 3.6-5.0 MMOL/L Chloride Level 104 98-107 MMOL/L Carbon Dioxide Level 27 21-32 MMOL/L Anion Gap 10 5-14 MMOL/L Blood Urea Nitrogen 13 7-18 MG/DL Creatinine 0.67 0.60-1.30 MG/DL Estimat Glomerular Filtration Rate 98 BUN/Creatinine Ratio 19 Glucose Level 93 70-105 MG/DL Calcium Level 9.3 8.5-10.1 MG/DL Corrected Calcium 9.4 8.5-10.1 MG/DL Magnesium Level 1.9 1.6-2.4 MG/DL Total Bilirubin 0.2 0.1-1.0 MG/DL Aspartate Amino Transf (AST/SGOT) 13 5-34 U/L Alanine Aminotransferase (ALT/SGPT) 15 0-55 U/L Alkaline Phosphatase 126 40-136 U/L Myoglobin 67.2 H <58.0 NG/ML Troponin I < 0.30 < 0.30 <0.30 NG/ML Total Protein 7.1 6.4-8.2 GM/DL Albumin 3.9 3.2-4.5 GM/DL My Orders Orders - MYNOR DELGADILLO MD Cbc With Automated Diff (03/20/22 15:57) Magnesium (03/20/22 15:57) Chest 1 View Ap/Pa Only (03/20/22 15:57) Ekg Tracing (03/20/22 15:57) Comprehensive Metabolic Panel (03/20/22 15:57) Myoglobin Serum (03/20/22 15:57) Protime With Inr (03/20/22 15:57) Partial Thromboplastin Time (03/20/22 15:57) O2 (03/20/22 15:57) Monitor-Rhythm Ecg Trace Only (03/20/22 15:57) Ed Iv/Invasive Line Start (03/20/22 15:57) Troponin I Fs (03/20/22 15:57) Ondansetron Injection (Zofran Injectio (03/20/22 16:45) Lidocaine 2% Viscous 15 Ml (Xylocaine Vi (03/20/22 16:45) Antacid Suspension (Mylanta Suspension (03/20/22 16:45) Aspirin Chewable Tablet (Baby Aspirin Ch (03/20/22 17:30) Ketorolac Injection (Toradol Injection) (03/20/22 17:30) Troponin I Fs (03/20/22 18:45) Medications Given in ED Vital Signs/I&O 03/20/22 03/20/22 15:47 19:45 Temp 36.4 36.4 Pulse 94 83 Resp 16 18 B/P (MAP) 126/57 (80) 123/63 Pulse Ox 96 96 O2 Delivery Room Air Room Air Blood Pressure Mean: 80 Progress Progress Note : Progress Note Chest pain work-up was pursued. Labs were relatively unremarkable including CBC and CMP. Troponin was negative. Repeat troponin 4 hours after onset of pain was also negative. Chest x-ray revealed no pathology. GI cocktail was given as a trial treatment. She only had a reduction of pain from 4/10 down to 3/10. However, Toradol relieved her pain. Pain seemed noncardiac in nature as it was worsened and reproducible with palpation. This likely represents a costochondritis. However, follow-up for further evaluation was recommended as she does have the risk factor of smoking. See discharge instructions for further discussion. I did advise patient to stop smoking. Initial ECG Impression Date: Mar 20, 2022 Initial ECG Impression Time: 16:04 Initial ECG Rate: 90 Initial ECG Rhythm: Normal Sinus Initial ECG Intervals: Normal Initial ECG Impression: Normal Comment Normal sinus rhythm with no ST elevation or depression. No abnormal intervals or axis deviation. Diagnostic Imaging Diagonstic Imaging: Xray Plain Films/CT/US/NM/MRI: chest Comments NAME: SHILA RIVERA [facility] REC#: [id number] PT STATUS: REG ER : 1960 PHYSICIAN: MYNOR DELGADILLO MD ADMIT DATE: 03/20/22/ER FS Signed Date of Exam:03/20/22 CHEST 1 VIEW AP/PA ONLY Indication: Chest pain Portable chest 4:16 PM Heart size and pulmonary vascularity are normal. Lungs are clear. There are no effusions or pneumothoraces. IMPRESSION: Negative chest Dictated by: Dictated on workstation # [id number] Dict: 03/20/22 1623 Trans: 03/20/22 1623 TCB [id number] Interpreted by: ALESSANDRA SIDHU MD Electronically signed by: ALESSANDRA SIDHU MD 03/20/22 1623 Departure Impression Primary Impression: Atypical chest pain Disposition: 01 HOME, SELF-CARE Condition: Improved Departure-Patient Inst. Decision time for Depature: 19:38 Referrals: KAYLYNN JONES MD (PCP/Family) Primary Care Physician Patient Instructions: Costochondritis, Chest Pain, Adult ED Add. Discharge Instructions: Since Toradol helped your pain in the emergency room, NSAID medications such as ibuprofen should help at home. It is possible your pain is caused by costochondritis. You may take ibuprofen up to 600 mg every 6 hours as needed. Take with food or milk to avoid stomach upset. For additional pain relief you may also take your Ultram (tramadol) and/or Tylenol (acetaminophen). Follow-up with your primary care provider next week and discuss whether a referral to a gas golf cart repairer or further cardiac testing such as a stress test is warranted. In the meantime, work toward quitting smoking. Return to the ER if you have worsening symptoms despite following these instructions. All discharge instructions reviewed with patient and/or family. Voiced understanding. Copy Copies To 1: SELF,MYNOR HERNANDEZ MD, MD Mar 20, 2022 19:40
[2022-03-20 19:45] VITALS: BP 123/63
== END 2022-03-20 19:45 | disposition home or self-care (01) ==
LOC: EDUNIT# 15:46 → ER FS 15:48
DX: R07.89 Other chest pain (principal); F17.200 Nicotine dependence, unspecified, uncomplicated
CPT/HCPCS: 36415; 71045; 80053; 83735; 83874; 84484; 85025; 85610; 85730; 93005; 93041